=== PATIENT | female | born 1990 | race African-American/Black ===

== ENCOUNTER 2016-03-28 10:28 | Emergency (ER) | payer MEDICAID ==
[2016-03-28] MEDS ORDERED: KETOROLAC 30 MG/ML VIAL ONE (13:22)
[2016-03-28] MEDS ORDERED: ORPHENADRINE 60 MG/2 ML AMP ONE (13:22)
== END 2016-03-28 15:04 | disposition home or self-care (01) ==
LOC: ER 10:28
CPT/HCPCS: 36415; 80053; 81001; 84703; 85025; 96374; 96375

== ENCOUNTER 2016-04-05 04:45 | Emergency (ER) | payer MEDICAID ==
[2016-04-05] MEDS ORDERED: SODIUM CHLORIDE 0.9% 1,000 ML ONE (06:24)
[2016-04-05] MEDS ORDERED: KETOROLAC 30 MG/ML VIAL ONE (06:48)
[2016-04-05] MEDS ORDERED: KCL CR 20 MEQ TAB PO ONE (07:26)
== END 2016-04-05 07:39 | disposition home or self-care (01) ==
LOC: ER 04:45
DX: N13.2 Hydronephrosis with renal and ureteral calculous obstruction (principal); R00.1 Bradycardia, unspecified; F17.210 Nicotine dependence, cigarettes, uncomplicated
CPT/HCPCS: 36415; 74176; 80053; 81001; 83690; 84703; 85025; 93005; 96361; 96374